=== PATIENT | male | born 1960 | race Caucasian/White ===

== ENCOUNTER 2023-09-18 23:52 | Inpatient (IN) | payer MEDICARE, OTHER ==
[2023-09-18] VITALS: BP 145/60; TEMP 99.3; O2SAT 96
[~2023-09-18] VITALS: Ht 167.6 cm; Wt 79.4 kg
[2023-09-19] VITALS (11 sets, daily range): BP systolic 111–165; BP diastolic 59–101; TEMP 98.4; O2SAT 95–100
[2023-09-19] MEDS ORDERED: ONDANSETRON HCL/PF 4 MG/2 ML VIAL IVP PRN (05:00)
[2023-09-19] MEDS ORDERED: ACETAMINOPHEN 325 MG TABLET PO PRN (05:00)
[2023-09-19] MEDS ORDERED: ALBUTEROL HALF STRENGTH 1.25 MG/3 ML VIAL.NEB NEB PRN ×2 (05:00→09:27)
[2023-09-19] MEDS ORDERED: IPRATROPIUM NEB FS 0.5 MG/2.5 ML AMPUL.NEB NEB PRN (05:00)
[2023-09-19] MEDS: ENOXAPARIN SODIUM 40 MG/0.4 ML DISP.SYRIN SQ SCH (05:31)
[2023-09-19] MEDS: methylPREDNISolone SOD SUCC 40 MG/ML VIAL IV SCH (05:31)
[2023-09-19] MEDS: CALCIUM CARBONATE 500 MG TAB.CHEW PO PRN (09:13)
[2023-09-19] MEDS: IPRATROPIUM NEB FS 0.5 MG/2.5 ML AMPUL.NEB NEB SCH (09:30)
[2023-09-19] MEDS: ALBUTEROL HALF STRENGTH 1.25 MG/3 ML VIAL.NEB NEB SCH (09:30)
[2023-09-19] MEDS: LEVOFLOXACIN (250MG) 250 MG TABLET PO ONE (11:20)
[2023-09-19] MEDS ORDERED: EMPA10TA PO (11:21)
[2023-09-19] MEDS ORDERED: ATOR80TA PO (11:21)
[2023-09-19] MEDS ORDERED: MOUNJARO SQ (11:21)
[2023-09-19] MEDS ORDERED: GABA-532 PO (11:21)
[2023-09-19] MEDS ORDERED: BUME0.5T5 PO (11:21)
[2023-09-19] MEDS ORDERED: ERGO500093 PO (11:21)
[2023-09-19] MEDS ORDERED: ASPI-1420 PO (11:22)
[2023-09-19] MEDS ORDERED: SACU1TAB PO (11:22)
[2023-09-19] MEDS ORDERED: ISOS60TA72 PO (11:22)
[2023-09-19] MEDS ORDERED: FLUT1BLS6 INH (11:22)
[2023-09-19] MEDS ORDERED: INSU100I4 SQ (11:22)
[2023-09-19] MEDS ORDERED: OMEP20CA15 PO (11:22)
[2023-09-19] MEDS ORDERED: CARV3.122 PO (11:22)
[2023-09-19] MEDS ORDERED: SPIR25TA PO (11:22)
[2023-09-19] MEDS ORDERED: INSU100I30 SQ (11:22)
[2023-09-19] MEDS ORDERED: RIVA2.5T PO (11:22)
[2023-09-19] MEDS ORDERED: AMLO-212 PO (11:22)
[2023-09-19] MEDS ORDERED: ALBU18HF2 IH (11:22)
[2023-09-19 12:53] LABS: CALCIUM, SERUM 9.5 mg/dL (8.5-10.1); CREATININE 1.9 mg/dL (0.6-1.3); POTASSIUM 5.1 mmol/L (3.5-5.1)
[2023-09-19] MEDS ORDERED: DEXTROSE 50%-WATER 50 ML DISP.SYRIN IV PRN (13:00)
[2023-09-19] MEDS: BLOOD SUGAR DIAGNOSTIC 1 EACH STRIP VI SCH (13:06)
[2023-09-19] MEDS: INSULIN REGULAR, HUMAN 100 UNIT/ML 3 ML VIAL SQ PRN (13:10)
[2023-09-19 13:25] LABS: BASOPHILS % (AUTO) 0.1 % (0.0-2.0); HEMATOCRIT 33 % (39-51); HEMOGLOBIN 11.2 g/dL (13.5-17.5); LYMPHOCYTES # (AUTO) 0.2 K/uL (0.8-4.8); LYMPHOCYTES % (AUTO) 4.7 % (20.0-44.0); MEAN CORPUSCULAR HEMOGLOBIN 34 PG (26.0-33.0); MEAN CORPUSCULAR HGB CONC 34 g/dl (31.0-36.0); MEAN CORPUSCULAR VOLUME 101 fL (80-96); MONOCYTES # (AUTO) 0.1 K/uL (0.1-1.30); MONOCYTES % (AUTO) 2.4 % (2.0-12.0); NEUTROPHILS # (AUTO) 4.7 K/uL (1.8-8.9); NEUTROPHILS % (AUTO) 92.8 % (43.0-81.0); PLATELET COUNT (AUTO) 204 K/uL (150-450); RED BLOOD CELL COUNT(AUTO) 3.29 MIL/uL (4.5-6.0); RED CELL DISTRIBUTION WIDTH 16.8 % (11.5-15.0); WHITE BLOOD COUNT (AUTO) 5.1 K/uL (4.3-11.0)
[2023-09-19] MEDS ORDERED: PANTOPRAZOLE 40 MG TABLET.DR PO PRN (14:30)
[2023-09-19] MEDS: AMLODIPINE BESYLATE 5 MG TABLET PO SCH (14:33)
[2023-09-19] MEDS: CARVEDILOL 3.125 MG TABLET PO SCH (16:28)
[2023-09-19 19:15] LABS: IRON, SERUM 103 ug/dl (50-175); TOTAL IRON BINDING CAPACITY 525 ug/dl (250-450)
[2023-09-19 19:30] LABS: CHOLESTEROL 223 mg/dL (<200); FERRITIN 205 ng/mL (8-388); HDL CHOLESTEROL 116 mg/dL (40-60); LDL 81 mg/dL (0-99); THYROID STIMULATING HORMONE 0.953 uIU/mL (0.358-3.74); TRIGLYCERIDES 96 mg/dL (30-150)
[2023-09-19] MEDS: GABAPENTIN 300 MG CAPSULE PO SCH (21:02)
[2023-09-19] MEDS: *INSULIN REGULAR(HUMULIN R)HUM 100 UNIT/ML VIAL SQ PRN (21:14)
[2023-09-19] MEDS: INSULIN GLARGINE, 100 UNIT/ML CARTRIDGE SQ SCH (21:15)
[2023-09-20] VITALS (11 sets, daily range): BP systolic 140–156; BP diastolic 57–65; TEMP 98.2–98.4; O2SAT 95–100
[2023-09-20 06:30] LABS: HEMATOCRIT 33 % (39-51); HEMOGLOBIN 11.1 g/dL (13.5-17.5); LYMPHOCYTES # (AUTO) 0.5 K/uL (0.8-4.8); LYMPHOCYTES % (AUTO) 5.8 % (20.0-44.0); MEAN CORPUSCULAR HEMOGLOBIN 34 PG (26.0-33.0); MEAN CORPUSCULAR HGB CONC 34 g/dl (31.0-36.0); MEAN CORPUSCULAR VOLUME 100 fL (80-96); MONOCYTES # (AUTO) 0.5 K/uL (0.1-1.30); MONOCYTES % (AUTO) 5.8 % (2.0-12.0); NEUTROPHILS # (AUTO) 7.3 K/uL (1.8-8.9); NEUTROPHILS % (AUTO) 88.4 % (43.0-81.0); PLATELET COUNT (AUTO) 195 K/uL (150-450); RED BLOOD CELL COUNT(AUTO) 3.27 MIL/uL (4.5-6.0); RED CELL DISTRIBUTION WIDTH 16.8 % (11.5-15.0); WHITE BLOOD COUNT (AUTO) 8.2 K/uL (4.3-11.0)
[2023-09-20 07:45] LABS: CALCIUM, SERUM 9.8 mg/dL (8.5-10.1); MAGNESIUM 3.3 mg/dL (1.8-2.4); PHOSPHORUS 3.2 mg/dL (2.5-4.9); POTASSIUM 5.4 mmol/L (3.5-5.1)
[2023-09-20] MEDS ORDERED: ISOSORBIDE MONONITRATE 60 MG TAB.SR.24H PO SCH (09:00)
[2023-09-20] MEDS: BUMETANIDE (1 MG) 1 MG TABLET PO SCH (09:03)
[2023-09-20] MEDS: ASPIRIN EC 81 MG TABLET.DR PO SCH (09:03)
[2023-09-20] MEDS: SPIRONOLACTONE 25 MG TABLET PO SCH (09:04)
[2023-09-20] MEDS: ATORVASTATIN 40 MG TABLET PO SCH (09:04)
[2023-09-20] MEDS: RIVAROXABAN 10 MG TABLET PO SCH (09:09)
[2023-09-20] MEDS: EMPAGLIFLOZIN 25 MG TABLET PO SCH (09:20)
[2023-09-20] MEDS: ISOSORBIDE MONONITRATE (30MG) 30 MG TAB.SR.24H PO SCH (09:22)
[2023-09-20] MEDS: SACUBITRIL/VALSARTAN 1 EACH TABLET PO SCH (09:51)
[2023-09-20] MEDS: LEVOFLOXACIN (250MG) 250 MG TABLET PO SCH (11:07)
[2023-09-20] MEDS: methylPREDNISolone SOD SUCC 40 MG/ML VIAL IV SCH (11:07)
[2023-09-20] MEDS ORDERED: LEVO500T90 PO (11:34)
[2023-09-20] MEDS ORDERED: PRED20TA PO (11:34)
[2023-09-20] MEDS ORDERED: *INSULIN REGULAR(HUMULIN R)HUM 100 UNIT/ML VIAL SQ PRN (12:00)
[2023-09-20] MEDS: INSULIN REGULAR, HUMAN 100 UNIT/ML 3 ML VIAL SQ PRN (12:22)
[2023-09-20] MEDS: SODIUM POLYSTYRENE SULFONATE 15 G/60 ML BOTTLE PO ONE (12:37)
== END 2023-09-20 19:00 | disposition home health service (06) | DRG 190 ==
LOC: TELE 23:52 → MED 09-20 13:01
PROVIDERS: ADMIT Nurse Practitioner Family; ATTEND Nurse Practitioner Family
DX: J44.1 Chronic obstructive pulmonary disease with (acute) exacerbation (principal); I50.33 Acute on chronic diastolic (congestive) heart failure; J96.01 Acute respiratory failure with hypoxia; I13.0 Hypertensive heart and chronic kidney disease with heart failure and stage 1 through stage 4 chronic kidney disease, or unspecified chronic kidney disease; E87.1 Hypo-osmolality and hyponatremia; N17.9 Acute kidney failure, unspecified; I42.9 Cardiomyopathy, unspecified; D53.9 Nutritional anemia, unspecified; E11.65 Type 2 diabetes mellitus with hyperglycemia; E87.5 Hyperkalemia; N18.30 Chronic kidney disease, stage 3 unspecified; Z95.1 Presence of aortocoronary bypass graft; I25.10 Atherosclerotic heart disease of native coronary artery without angina pectoris; E11.51 Type 2 diabetes mellitus with diabetic peripheral angiopathy without gangrene; F17.210 Nicotine dependence, cigarettes, uncomplicated; E11.22 Type 2 diabetes mellitus with diabetic chronic kidney disease; Z71.6 Tobacco abuse counseling; Z95.2 Presence of prosthetic heart valve; Z79.4 Long term (current) use of insulin
CPT/HCPCS: 36415; 71045-TC; 76770-TC; 80048-TC; 80061-TC; 82728-TC; 82962-TC; 83540-TC; 83735-TC; 83880; 84100-TC; 84439-TC; 84443-TC; 84484-TC; 85025-TC; 87081-TC; 93307-TC; 93970-TC; 94760-TC; 94799-TC; G0378; J1650; J1815; J2919